=== PATIENT | female | born 1980 | race Asian ===

== ENCOUNTER 2024-12-17 09:25 | Outpatient (REF) | payer OTHER, SELFPAY ==
--- NOTE | ~2024-12-17 | MM_ITS ---
EXAMINATION: MM DIAGNOSTIC DIGITAL BREAST TOMOSYNTHESIS, LEFT CLINICAL INFORMATION: Previous outside diagnostic imaging recommended biopsy of calcifications in the lower inner left breast. Patient has small breast size less than 2 cm which could make stereotactic core needle biopsy difficult to obtain. COMPARISON: Mammography: Priors from outside imaging on PACS. TECHNIQUE: Digital breast tomosynthesis is performed in both the craniocaudal and mediolateral oblique views along with computer-aided detection (CAD). Synthesized 2D images are generated from the tomosynthesis. FINDINGS: The breasts are heterogeneously dense, which may obscure small masses. Grouped calcifications in the lower inner quadrant are punctate and round and faint and may have been present dating back to 2022 on prior mammograms. No suspicious masses or other abnormal findings. MM/MM tomosynthesis diagnostic LT IMPRESSION: Grouped faint punctate and round calcifications in the lower inner left breast posterior depth which may have been present on mammogram 2022. Patient has a small breast size and this may be difficult stereotactic core needle biopsy as a recommendation for biopsy from outside institution was made. Discussion with the patient on biopsy versus follow-up. The patient prefers six-month follow-up with magnification views for further evaluation at this time. ASSESSMENT: BI-RADS Category 3: Probably benign RECOMMENDATION: 6 Month F/U Results were provided to the patient at time of visit by the technologist. This patient's information was entered into a reminder system with a target due date for their next mammogram. Electronically signed by: Irene Eugene DO 12/17/2024 10:38 AM EDT
--- OUTSIDE RECORDS SUMMARY | 2024-12-17 10:51 | XMS_ITS | Clinical Summary ---
Author Organization [facility] Address [address] [place] [phone] Phone Care Team Providers Care Day Haul Youth Supervisor Name Role Phone Susan Hopkins DO Primary Care Provider Allergies No known active allergies Medications cyclobenzaprine (FLEXERIL) 5 MG tablet 1-2 po q 8 hours prn 12 tablet 10/28/2022 Active Active Problems No known active problems Social History Tobacco Use Types Packs/Day Years Used Date Smoking Tobacco: Never Passive Smoke Exposure: Never Smokeless Tobacco: Never Alcohol Use Standard Drinks/Week Comments Never 0 (1 standard drink = 0.6 oz pur e alcohol) Education Answer Date Recorded Are you interested in more education? Not on fritz e 06/15/2022 Are you concerned about learning? Not on file 06/15/2022 No 06/15/2022 No 06/15/2022 Digital Access Answer Date Recorded No 07/17/2022 No 07/17/2022 Reliable internet access at home? Not on file 07/17/2022 Device with a working camera? Not on file Comments Unknown Sex and Gender Information Value Date Recorded Sex Assigned at Not on file Legal Sex Female 7:05 PM EST Gender Identity Not on file Sexual Orientation Not on file Last Filed Vital Signs Vital Sign Reading Time Taken Comments Blood Pressure 122/80 10/28/2022 1:55 PM EDT Pulse 74 10/28/2022 1:55 PM EDT Temperature - - Respiratory Rate 15 10/28/2022 1:55 PM EDT Oxygen Saturation 99% 10/28/2022 1:55 PM EDT Inhaled Oxygen Concentration - - Weight 49.9 kg (110 lb) 10/28/2022 1:55 PM EDT Height 149.9 cm (4' 11 ) 10/28/2022 1:55 PM EDT Body Mass Index 22.22 10/28/2022 1:55 PM EDT Plan of Treatment Health Maintenance Due Date Last Done Comments Adult Td,Tdap Booster 1978 LIPID PANEL 1978 DEPRESSION SCREENING 1990 HEPATITIS C SCREENING 1996 HIV ONE-TIME SCREENING (18-6 5 YEARS) 1996 MAMMOGRAM 2018 COLOGUARD 11/03/2023 COLONOSCOPY 11/03/2023 COLORECTAL CANCER SCREENING 11/03/2023 FIT TEST 11/03/2023 FOBT 11/03/2023 SIGMOIDOSCOPY 11/03/2023 VIRTUAL COLONOSCOPY 11/03/2023 PAP SMEAR 04/05/2024 04/05/2021, 04/02/2017 INFLUENZA VACCINE (#1) 2024 8, 12/02/2006 COVID-19 VACCINE (2 - 2024-2 6 season) 2024 06/11/2020 SMOKING STATUS SCREENING (On ce After 26 Yrs) Completed 10/28/2022 HEPATITIS A VACCINES Aged Out No long er eligible based on patient's age to complete this topic HIB VACCINES Aged Out No longer eligi ble based on patient's age to complete this topic MENINGOCOCCAL VACCINES (ACWY) Aged Out No longer eligible based on patient's age to complete this topic MENINGOCOCCAL VACCINES (B) Aged Out N o longer eligible based on patient's age to complete this topic PNEUMOCOCCAL VACCINES (0-49 years) Aged Out No longer eligible b ased on patient's age to complete this topic Medical Devices Not on file Procedures Procedure Name Priority Date/Time Associated Diagnosis Comments PAP TEST Routine 04/05/2021 12:00 AM EST from Last 3 Months or Most Recently Relevant to Health Maintenance Results * Pap Smear (04/05/2021 12:00 AM EST) 04/05/2021 04/06/2021 9:5 4 AM EST Narrative SEE NARRATIVE - 04/13/2021 9:55 AM EST [address] [id number] Motor Vehicle Escort Driver: Chandni Rivera MD TEACHING FELLOW Cytology Report FINAL DIAGNOSIS A. PAP SMEAR (SUREPATH) CE: SPECIMEN ADEQUACY: Satisfactory for evaluation; transformation zone present. INTERPRETATION: NEGATIVE FOR INTRAEPITHELIAL LESION OR MALIGNANCY. Coccobacilli consistent with shift in romana Electronically Signed Out By: BRETT Lindsay(ASCP) The Pap test is a screening test primarily for squamous cancers and precursors and has associated false-negative and false-positive results. New technologies such as liquid-based preparations may decrease but will not eliminate all false-negative results. Regular sampling and follow-up of unexplained clinical signs and symptoms are recommended to minimize false negative results. PROCEDURES/ADDENDA HPV Testing (Requested) Ordered Date: 04/06/2021 A. PAP SMEAR (SUREPATH) CE: Human Papilloma Virus Test Negative for high-risk human papillomavirus types 16, 18, 45 and the Other high risk probe set (Includes 31, 33, 35, 39, 51, 52, 56, 58, 59, 66, 68) by [employer] OnclarimChron HR-HPV analysis. Clinical correlation is advised. This HPV test was performed at [facility], [address] [place] [address]. This test has been FDA approved for [facility] cervical cytology specimens. The accuracy and precision of this test for all other specimen sources has been verified in the Cytopathology Laboratory of the [facility] and has not been cleared or approved by the U.S. Food and Drug Administration. Clinical correlation is advised. CLINICAL HISTORY Date of Last Menstrual Period: 03-27-2021 Other Clinical Conditions: Screening Pap SPECIMEN SOURCE A: PAP SMEAR (SUREPATH) CE Patient Name: BRITTNEE KAYE : 1980 (Age: 40) Sex: F Institution: [facility] Location: [facility] Date of Collection: 04/05/2021 Date of Reported: 04/12/2021 10:53 Results to: Kathia Britt NP Kathia Britt NP CYTOLOGY ORDERABLES Edited Result - Final SEE NARRATIVE from Last 3 Months or Most Recently Relevant to Health Maintenance Insurance [facility] [facility] POS [place] [id number] [facility] [place] [employer] [facility] POS [facility] POS Care Teams Day Haul Youth Supervisor Relationship Specialty Start Date End Date Susan Hopkins DO [address] [place] [phone] PCP - General Internal Medicine 04/05/21 Additional Source Comments The information contained in this document represents components of the legal health record. It is not the complete legal health record.[facility]
== END 2024-12-17 09:26 | disposition home or self-care (01) ==
LOC: HO.MAMMO 09:25
PROVIDERS: PCP Physician Assistant; Visit Provider Physician Assistant
DX: R92.8 Other abnormal and inconclusive findings on diagnostic imaging of breast (principal)
CPT/HCPCS: 77061; 77065

== ENCOUNTER → 2024-12-17 09:43 | Outpatient (BNV) | payer OTHER, SELFPAY | PROVIDERS: PCP Physician Assistant; Visit Provider Internal Medicine | DX: R92.8 Other abnormal and inconclusive findings on diagnostic imaging of breast (principal) | CPT/HCPCS: 77061; 77065 ==